=== PATIENT | female | born 1995 | race Hispanic/Latino ===

== ENCOUNTER 2020-02-18 10:25 | Observation (INO) | payer BC ==
[~2020-02-18] VITALS: Ht 162.6 cm; Wt 108.9 kg
[2020-02-18 13:08] VITALS: BP 123/60
== END 2020-02-18 13:30 | disposition home or self-care (01) ==
LOC: EDH 10:25 → LDH 10:36
PROVIDERS: ADMIT Obstetrics & Gynecology; ATTEND Obstetrics & Gynecology
DX: O26.893 Other specified pregnancy related conditions, third trimester (principal); O16.3 Unspecified maternal hypertension, third trimester; Z3A.39 39 weeks gestation of pregnancy
CPT/HCPCS: 99283; G0378 ×3

== ENCOUNTER 2020-02-20 10:25 | Inpatient (IN) | payer BC, OTHER ==
[~2020-02-20] VITALS: Ht 162.6 cm; Wt 107.5 kg
[2020-02-20] MEDS ORDERED: MAGNESIUM SULFATE 1,000 ML IV PRN (10:29)
[2020-02-20] MEDS ORDERED: CALCIUM GLUCONATE 1 GM/10 ML VIAL IV PRN (10:30)
[2020-02-20] MEDS ORDERED: LABETALOL HCL 5 MG/ML 20ML VIAL IV SCH (10:30)
[2020-02-20] MEDS ORDERED: LACTATED RINGERS 1000ML 1,000 ML IV SCH (10:30)
[2020-02-20] MEDS ORDERED: MAGNESIUM 4GM PREMIX 100ML 100 ML IV PRN (10:30)
[2020-02-20] MEDS ORDERED: ROPIVACAINE 0.2% 100ML VIAL 100 ML EP SCH (10:45)
[2020-02-20] MEDS ORDERED: NALOXONE HCL 0.4 MG/1 ML ML IV PRN (10:45)
[2020-02-20] MEDS ORDERED: EPHEDRINE SULFATE 50 MG/ML AMPULE IVP PRN (10:45)
[2020-02-20] MEDS ORDERED: LACTATED RINGERS 500 ML 500 ML IV PRN (10:45)
[2020-02-20 11:19] LABS: BASOPHILS % (AUTO) 0.2 % (0.0-5.0); HEMATOCRIT 37.5 % (36-48); LYMPHOCYTES % (AUTO) 9.4 % (21.0-51.0); MEAN CORPUSCULAR HEMOGLOBIN 29.1 pg (27.0-33.0); MEAN CORPUSCULAR HGB CONC 35.2 g/dL (32.0-36.0); MEAN CORPUSCULAR VOLUME 82.8 fL (79-99); NEUTROPHILS % (AUTO) 86.8 % (40.0-77.0); PLATELET COUNT (AUTO) 295 K/uL (130-400); RED BLOOD CELL COUNT(AUTO) 4.53 MIL/uL (4.00-5.50); RED CELL DISTRIBUTION WIDTH 13.3 % (11.0-15.5); WHITE BLOOD COUNT (AUTO) 19.5 K/uL (4.8-10.8)
[2020-02-20 11:24] LABS: APPEARANCE,URINE Clear (CLEAR); BILIRUBIN,URINE Negative (NEGATIVE); COLOR,URINE Yellow (YELLOW); GLUCOSE, URINE (UA) Negative (NEGATIVE); KETONES,URINE 15 mg/dL (NEGATIVE); LEUKOCYTE ESTERASE ,URINE Small (NEGATIVE); NITRATE,URINE Negative (NEGATIVE); OCCULT BLOOD,URINE Moderate (NEGATIVE); PH,URINE 6.5 (5.0-8.0); PROTEIN,URINE POS 1+ mg/dL (NEGATIVE); UROBILINOGEN,URINE 0.2 mg/dL (0.2-1.0)
[2020-02-20 11:32] LABS: BACTERIA,URINE Rare /HPF (None Seen)
[2020-02-20 11:33] LABS: SQUAMOUS EPITHELIAL CELL,UR Few /HPF (0-2)
[2020-02-20 11:35] LABS: CREATININE 0.6 mg/dL (0.5-1.5); POTASSIUM 4.1 mmol/L (3.5-5.1)
[2020-02-20 11:37] LABS: INR 0.86 (0.85-1.15); PARTIAL THROMBOPLASTIN TIME 24.6 SEC (26.3-35.5); PROTHROMBIN TIME 9.3 SEC (9.6-11.6)
[2020-02-20 11:41] LABS: ALBUMIN 2.9 g/dL (3.5-5.0); BILIRUBIN,DIRECT 0.1 mg/dL (0.0-0.3); BILIRUBIN,TOTAL 0.4 mg/dL (0.2-1.0); TOTAL PROTEIN, SERUM 6.9 g/dL (6.0-8.3)
[2020-02-20] MEDS ORDERED: OXYTOCIN-LR 20 UNITS/1000 ML 1,000 ML IV ONE (11:48)
[2020-02-20 12:58] VITALS: BP 120/59
[2020-02-20] MEDS ORDERED: CEFAZOLIN SODIUM 1 GM VIAL IVP PRN (16:45)
[2020-02-20] MEDS ORDERED: CALDOLOR 800MG+NS 250ML 250 ML IV PRN (16:45)
[2020-02-20] MEDS ORDERED: CALDOLOR 800MG+NS 250ML 250 ML IV ONE (16:46)
[2020-02-20] MEDS ORDERED: CEFAZOLIN SODIUM 1 GM VIAL ONE (16:46)
[2020-02-20] MEDS ORDERED: DIPH,PERTUSS(ACELL),TET VAC/PF 0.5 ML VIAL IM SCH (17:15)
[2020-02-20] MEDS ORDERED: SODIUM CHLORIDE 0.9% 10 ML VIAL IVP PRN (17:15)
[2020-02-20] MEDS ORDERED: LANOLIN 30GM OINTMENT TP PRN (17:15)
[2020-02-20] MEDS: IBUPROFEN 800 MG TAB PO SCH (17:15)
[2020-02-20] MEDS ORDERED: BISACODYL 10 MG SUPP.RECT RC PRN (17:15)
[2020-02-20] MEDS ORDERED: ACETAMINOPHEN EXTRA STRENGTH 500 MG TABLET PO PRN (17:15)
[2020-02-20] MEDS ORDERED: PROMETHAZINE HCL 25 MG/ML 1ML AMPULE IM PRN (17:15)
[2020-02-20] MEDS ORDERED: MEPERIDINE-PF 75 MG/ML SYG IM PRN (17:15)
[2020-02-20] MEDS ORDERED: DIPHENHYDRAMINE HCL 25 MG CAPSULE PO PRN (17:15)
[2020-02-20] MEDS ORDERED: HYDROCODONE/ACETAMINOPHEN 5/325 MG TAB PO PRN (17:15)
[2020-02-20] MEDS ORDERED: OXYTOCIN-LR 20 UNITS/1000 ML 1,000 ML IV PRN (17:15)
[2020-02-20] MEDS ORDERED: MEASLES/MUMPS/RUBELLA VACCINE, LIVE 0.5 ML/VIAL SQ SCH (17:15)
[2020-02-20] MEDS ORDERED: IBUPROFEN 600 MG TABLET PO PRN (17:15)
[2020-02-20] MEDS ORDERED: DEXTROSE 5 %-0.45 % NACL 1,000 ML IV PRN (17:15)
[2020-02-20] MEDS ORDERED: DURAMORPH PF1 MG/ML 10ML AMP IV ONE (17:20)
[2020-02-20] MEDS ORDERED: CEFAZOLIN SODIUM 1 GM VIAL IVP ONE (17:20)
[2020-02-20] MEDS ORDERED: ONDANSETRON HCL 4 MG/2 ML VIAL ONE (17:26)
[2020-02-20] MEDS ORDERED: MISOPROSTOL 200 MCG TABLET ONE (17:30)
[2020-02-20] MEDS ORDERED: MISOPROSTOL 200 MCG TABLET VG SCH (17:35)
--- NOTE | 2020-02-20 20:50 | NUR ---
Patient; Patient received from Labor & Delivery report received from Drew Haider RN. Patient came in via bed accompanied by Keenan Pace, postal carrier, Keenan Kidd RN and . She has an IV of LR with 20 units Pitocin infusing well, Acharya Catheter patent flowing clear yellow urine. COMBINATION PRESSER pump continous per report till 0800 . Patient & oriented to room. Call light given. Plan of care discussed with patient verbalizes understanding.
[2020-02-20 21:09] VITALS: BP 131/68
[2020-02-20] MEDS: SIMETHICONE 80 MG TAB.CHEW PO PRN (21:48)
[2020-02-20] MEDS: DOCUSATE SODIUM 100 MG CAP PO SCH (21:48)
[2020-02-20] MEDS ORDERED: PREN-66 PO (22:29)
[2020-02-21] VITALS (7 sets, daily range): BP systolic 124–143; BP diastolic 61–85
[2020-02-21] MEDS ORDERED: CALDOLOR 800MG+NS 250ML 250 ML IV SCH (01:15)
[2020-02-21] MEDS: IBUPROFEN 800 MG TAB PO SCH ×3 (01:15→18:04)
[2020-02-21 06:38] LABS: HEMATOCRIT 33.5 % (36-48); MEAN CORPUSCULAR HEMOGLOBIN 29.1 pg (27.0-33.0); MEAN CORPUSCULAR HGB CONC 34.3 g/dL (32.0-36.0); MEAN CORPUSCULAR VOLUME 84.8 fL (79-99); PLATELET COUNT (AUTO) 216 K/uL (130-400); RED BLOOD CELL COUNT(AUTO) 3.95 MIL/uL (4.00-5.50); RED CELL DISTRIBUTION WIDTH 13.4 % (11.0-15.5); WHITE BLOOD COUNT (AUTO) 15.8 K/uL (4.8-10.8)
[2020-02-21 08:10] LABS: HEPATITIS Bs ANTIGEN SCREEN P Negative (Negative)
[2020-02-21] MEDS: SIMETHICONE 80 MG TAB.CHEW PO PRN ×4 (10:21→20:49)
[2020-02-21] MEDS: DOCUSATE SODIUM 100 MG CAP PO SCH ×2 (10:21→20:49)
--- NOTE | 2020-02-21 11:00 | NUR ---
SPENCER CATHETER REMOVED WITH TIP INTACT. PERICARE GIVEN AT THIS TIME. ASSISTED PATIENT OOB TO CHAIR AT BEDSIDE. NO C/O DIZZINESS REPORTED.
--- NOTE | 2020-02-21 12:30 | NUR ---
PATIENT AMBULATING IN HALLWAY. NO DIZZINESS REPORTED. STEADY GAIT NOTED.
[2020-02-21] MEDS: ACETAMINOPHEN-CODEINE 300/30MG TAB PO PRN (13:05)
--- NOTE | 2020-02-21 15:39 | NUR ---
REPORT GIVEN TO SUZETTE FONTENOT FOR CONTINUITY OF CARE.
[2020-02-22] MEDS: IBUPROFEN 800 MG TAB PO SCH ×2 (02:47→10:42)
[2020-02-22 03:13] VITALS: BP 140/81
[2020-02-22 07:29] VITALS: BP 136/76
[2020-02-22] MEDS: SIMETHICONE 80 MG TAB.CHEW PO PRN (09:05)
[2020-02-22] MEDS: DOCUSATE SODIUM 100 MG CAP PO SCH (09:05)
[2020-02-22] MEDS: ACETAMINOPHEN-CODEINE 300/30MG TAB PO PRN (09:08)
[2020-02-22] MEDS ORDERED: IBUP-2077 PO (10:21)
[2020-02-22] MEDS ORDERED: DOCU-116 PO (10:22)
[2020-02-22] MEDS ORDERED: ACET1TAB12 PO (10:22)
--- NOTE | 2020-02-22 11:00 | NUR ---
Verbal and written discharge instructions given, informed of follow up appointment, prescription given, all questions answered, informed to call the doctor for future concerns, pt voiced understanding to all things discussed. Addendum: 02/22/20 at 1138 by SANDI NETTLES RN Amended: Links added.
[2020-02-22 11:11] VITALS: BP 145/83
--- NOTE | 2020-02-22 13:24 | NUR ---
pt is dismissed in stable condition, brought to private car via wheelchair by Lela Chandler pcp Addendum: 02/22/20 at 1325 by SANDI NETTLES RN Amended: Links added.
== END 2020-02-22 13:30 | disposition home or self-care (01) | DRG 788 ==
LOC: OBSVTOIN 10:25 → LDH 10:25 → WSH 20:52
PROVIDERS: ADMIT Obstetrics & Gynecology; ATTEND Obstetrics & Gynecology
PROC: 3E0234Z Introduction of Serum, Toxoid and Vaccine into Muscle, Percutaneous Approach (ICD-10-PCS; 2020-02-20)
PROC: 3E0134Z Introduction of Serum, Toxoid and Vaccine into Subcutaneous Tissue, Percutaneous Approach (ICD-10-PCS; 2020-02-20)
PROC: 10D00Z1 Extraction of Products of Conception, Low, Open Approach (ICD-10-PCS; principal; 2020-02-20 17:00)
DX: O14.14 Severe pre-eclampsia complicating childbirth (principal); Z3A.39 39 weeks gestation of pregnancy; Z37.0 Single live birth; E66.9 Obesity, unspecified; O99.214 Obesity complicating childbirth; O62.2 Other uterine inertia; O61.9 Failed induction of labor, unspecified; Z23 Encounter for immunization
CPT/HCPCS: 36415; 59510; 80053; 80076; 81001; 84550; 85025; 85027; 85384; 85610; 85730; 86592; 86850; 86900; 86901; 87088; 87340; A4314; A4344; A4606; G0378; J0690; J1741; J2274; J2405; J2590; J2795; J3475; J3490; J7120